=== PATIENT | female | born 1945 | race Caucasian/White ===

== ENCOUNTER → 2020-09-18 | Outpatient (CLI) | payer OTHER | LOC: RAD 11:05 | PROVIDERS: ATTEND Nurse Practitioner | DX: R07.89 Other chest pain (principal) ==

== ENCOUNTER → 2020-09-25 | Outpatient (CLI) | payer OTHER | LOC: SJCVC 13:55 | PROVIDERS: ATTEND Internal Medicine | DX: R94.31 Abnormal electrocardiogram [ECG] [EKG] (principal); R07.2 Precordial pain; E03.9 Hypothyroidism, unspecified; Z88.8 Allergy status to other drugs, medicaments and biological substances; Z79.899 Other long term (current) drug therapy ==